=== PATIENT | female | born 1995 | race Caucasian/White ===

== ENCOUNTER 2020-10-09 19:14 | Emergency (ER) | payer OTHER ==
[~2020-10-09] VITALS: Ht 162.6 cm; Wt 61.2 kg
[2020-10-09 19:14] VITALS: BP 126/91
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
--- NOTE | 2020-10-09 19:44 | NUR ---
TECH AT BEDSIDE FOR CLEANING OF PATIENT'S WOUND.
--- NOTE | 2020-10-09 20:03 | NUR ---
Patient discharged to home in stable condition. Written and verbal after care instructions given. Patient verbalizes understanding of instruction.
== END 2020-10-09 20:04 | disposition home or self-care (01) ==
LOC: ER 19:16
DX: S61.012A Laceration without foreign body of left thumb without damage to nail, initial encounter (principal); W26.0XXA Contact with knife, initial encounter; Y93.E8 Activity, other personal hygiene; Y92.89 Other specified places as the place of occurrence of the external cause; Y99.8 Other external cause status
CPT/HCPCS: A6403